=== PATIENT | female | born 1960 | race Caucasian/White ===

== ENCOUNTER 2016-09-19 06:11 | Day surgery (SDC) | payer BC ==
[2016-09-14 18:19] VITALS: BMI 26.0
[2016-09-19] MEDS ORDERED: LIDOCAINE HCL 1%, 10 MG/ML (20ML VIAL) ONE (07:28)
[2016-09-19] MEDS ORDERED: BUPIVACAINE HCL/PF 0.5% (5MG/ML) 10 ML VIAL ONE (07:28)
[2016-09-19] MEDS ORDERED: MIDAZOLAM HCL 2 MG/2 ML SINGLE DOSE VIAL ONE (07:49)
[2016-09-19] MEDS ORDERED: PROPOFOL 20 ML ONE ×3 (07:49→08:29)
[2016-09-19] MEDS ORDERED: LIDOCAINE HCL/PF 2% SDV 5ML VIAL ONE (07:49)
[2016-09-19] MEDS ORDERED: SUCCINYLCHOLINE CHLORIDE 200 MG/10 ML VIAL ONE (07:51)
[2016-09-19] MEDS ORDERED: ceFAZolin SODIUM 1 GM VIAL ONE (08:13)
--- NOTE | 2016-09-19 09:07 | HP ---
Satellite [facility] - Chief Complaint Chief Complaint: left hand pain, numbness, weakness History of Present Illness: left CTS, trigger thumb History Source: Patient Limitations to Obtaining History: No Limitations - Past Medical History Allergies/Adverse Reactions: Allergies Allergy/AdvReac Type Severity Reaction Status Date / Time Penicillins Allergy Intermediate Hives Verified 09/19/16 06:58 ...LMP Comment: POST-MENOPAUSAL '16 - Current Medications Current Medications: Home Medications Medication Instructions Recorded Amlodipine Besylate 5 mg PO DAILY 09/14/16 Naproxen Sodium [Aleve] 440 mg PO BID PRN 09/14/16 Satellite Physical Exam - Physical Examination Vital Signs: Vital Signs Period Temp Pulse Resp BP Sys/Jade Pulse Ox Last 24 Hr 97.7 F 66 20 141/87 100 General Appearance: Well Nourished ENT: Clear Lung: Clear to auscultation Heart: Regular rate & rhythm Breasts: Soft Abdomen: Soft Extremities: No edema Satellite Impression/Plan - Impression/Plan Impression: Left CTS, Trigger Thumb Operative Procedure: Left CTR, trigger thumb release, tenosynovectomy Date to be Performed: 09/19/16
--- NOTE | 2016-09-19 09:11 | OP ---
Operative Note - Note: Operative Date: 09/19/16 Pre-Operative Diagnosis: Left CTS and Trigger Thumb Operation: Left CTR, tenosynovectomy, Trigger Thumb release Post-Operative Diagnosis: Same as Pre-op Surgeon: Jaden Hernandez Anesthesiologist/FINANCIAL ANALYST ACCOUNTANT: Fidelia Zhong Anesthesia: General, Local Specimens Removed: tenosynovitis Estimated Blood Loss (mls): 0 Blood Volume Replaced (mls): 0 Fluid Volume Replaced (mls): 700 Operative Report Dictated: Yes
[2016-09-19] MEDS ORDERED: PROMETHAZINE HCL 25 MG/1 ML VIAL IVPUSH PRN (09:52)
[2016-09-19] MEDS ORDERED: ONDANSETRON 4 MG/2 ML VIAL IVPUSH PRN (09:52)
[2016-09-19] MEDS ORDERED: oxyCODONE HCL 5 MG TABLET PO PRN (09:52)
[2016-09-19 10:17] VITALS: TEMP 97.8
[2016-09-19 11:16] VITALS: PULSE 58
[2016-09-19 11:52] VITALS: BP 110/70
--- NOTE | 2016-09-20 11:04 | SPEC ---
DATE OF OPERATION: 09/19/2016 PREOPERATIVE DIAGNOSIS: Left carpal tunnel syndrome, trigger thumb release, tenosynovectomy. SURGEON: Sunshine Stearns MD HEAT TREATER: None. ANESTHESIOLOGIST: Fidelia Zhong CRNA ANESTHESIA: MAC, local injection of 12 mL 0.5% Marcaine 1% lidocaine mix. DRAINS: None. COMPLICATIONS: None. SPECIMEN: Tenosynovium left wrist. BLOOD LOSS: None. BLOOD GIVEN: None. FLUID REPLACEMENT: 700 mL. INDICATIONS: This patient is a 56-year-old female with a preoperative diagnosis of severe left carpal tunnel syndrome and left trigger thumb. After understanding the potential risks, complications, alternatives, and benefits to surgery versus nonsurgical treatment, the patient elected to undergo the procedure. DESCRIPTION OF PROCEDURE: The patient was brought to the operating room, peripheral IV placed and intravenous sedation was given. One gram of intravenous Ancef was given. MAC anesthesia was induced. A tourniquet was applied to the left upper arm and the left upper extremity was prepped and draped in sterile fashion. The entire case was done under 3.8 loupe magnification. A marking pen was utilized to sunitha out a longitudinal incision in an already existing skin crease. Twenty mL of 0.5% Marcaine mixed with 1% Lidocaine was injected in and around the surgical incision. The left upper extremity was elevated, exsanguinated with an Esmarch bandage and the tourniquet inflated to 250 mmHg. A No. 15 scalpel blade was utilized to cut down through the skin. Subcutaneous hemostasis was achieved with the bipolar cautery. Dissection was done through the superficial palmar fascia. Self-retaining retractors were placed into the wound. Under direct visualization, the transverse carpal ligament was transected with a No. 15 scalpel blade, exposing the median nerve and the contents of the carpal tunnel. The distal and proximal extents of the release were completed with a Littler scissor and checked with irrigation and my small finger. They were seen to be complete. Limited dissection was done on the radial side of the median nerve and more extensive dissection was done on the ulnar side of the median nerve. The patients nerve was seen to be quite compressed by epineurium and therefore a limited epineurotomy was performed. A Ragnell retractor was used to gently retract the median nerve in a radial direction. The patient had a lot of tenosynovitis and therefore a tenosynovectomy was performed off all 9 flexor tendons. This was passed off the field as tenosynovium left wrist. The floor of the carpal tunnel was checked. There were no abnormal masses or ganglion cysts. The area was copiously irrigated and washed out and closure begun. Undyed 4-0 Vicryl was used to close the deep dermal layer. Final skin reapproximation was done with horizontal mattress 4-0 nylon sutures. The area was then washed and dried, covered with Xeroform, 4x4s, fluffs between the fingers, Webril and a 4-inch plaster roll was utilized to make a volar splint, which was then wrapped with Sapna and Coban. The case was begun by doing a left trigger thumb release. Transverse incision was made with a No. 15 scalpel blade. Subcutaneous hemostasis was achieved with the bipolar cautery. Longitudinal dissection was done with curved iris scissors. Great care was taken to directly visualize and protect both neurovascular bundles. The A-1 lobito sheath was directly visualized and incised with a blunt tip Littler scissors. The release was completed both distally and proximally under direct visualization using Ragnell retractors. Next, the central one-third of the tendon sheath was excised and passed off the field as specimen. Next, a Imboden elevator was used distally and proximally to make sure the release was completed. It was seen to be complete and the FPL tendon brought out through the wound with a Ragnell retractor. There were no points of compression. Therefore the area was copiously irrigated and washed out. The deep dermal layer closed with 4-0 undyed Vicryl and the skin re-approximated with horizontal mattress 4-0 nylon sutures. The tourniquet was taken down after a total tourniquet time of 22 minutes. There were no complications during the case. The patient tolerated the procedure well and was brought to the ambulatory recovery room in stable condition. SUNSHINE STEARNS M.D. [id number]
--- NOTE | 2016-09-20 16:04 | PATH ---
Surgical Pathology Report Patient Name: DAVID HEALY [facility]. Rec. #: [id number] /Age/Gender: 1960 (Age: 56) / F Account: [id number] Location: [facility] SURGICAL Taken: 09/19/2016 Received: 09/19/2016 Reported: 09/20/2016 Physicians: Jaden Hernandez M.D. Specimen(s) Received LEFT TENOSYNOVIUM Clinical History Left carpal tunnel and left trigger thumb release Final Diagnosis SOFT TISSUE, TENOSYNOVIUM, LEFT CARPAL TUNNEL AND TRIGGER FINGER RELEASE: BENIGN TENOSYNOVIAL FIBROCONNECTIVE TISSUE WITH MYXOID DEGENERATION. Electronically Signed Avelino Street M.D. Gross Description Received in formalin, labeled "left tenosynovium" are four fragments of van-white soft tissue ranging from 0.7-1.5 cm in greatest dimension. Submitted entirely in one cassette. AF/09/19/2016 final/09/19/2016
== END 2016-09-19 11:53 | disposition home or self-care (01) ==
LOC: JASU-SURG 06:11
PROVIDERS: ATTEND Orthopaedic Surgery
PROC: 01N50ZZ Release Median Nerve, Open Approach (ICD-10-PCS; 2016-09-19)
PROC: 0LB60ZZ Excision of Left Lower Arm and Wrist Tendon, Open Approach (ICD-10-PCS; 2016-09-19)
PROC: 0LN80ZZ Release Left Hand Tendon, Open Approach (ICD-10-PCS; principal; 2016-09-19 08:00)
DX: G56.02 Carpal tunnel syndrome, left upper limb (principal); M65.312 Trigger thumb, left thumb; M65.842 Other synovitis and tenosynovitis, left hand
CPT/HCPCS: 88304-TC; 94760